=== PATIENT | female | born 1990 | race Caucasian/White ===

== ENCOUNTER 2018-04-29 16:59 | Emergency (ER) | payer SELFPAY ==
[2018-04-29 17:05] VITALS: BMI 18.3
--- NOTE | 2018-04-29 17:52 | PDOC ---
Attending Attestation - Resident Resident Name: Aldridge,Elaina - ED Attending Attestation I have performed the following: I have examined & evaluated the patient, The case was reviewed & discussed with the resident, I agree w/resident's findings & plan, Exceptions are as noted - HPI HPI: 04/29/18 17:51 28 yo F currently 7 weeks here with abd cramping, no vaginal bleeding. no urinary symptoms. also c/o nausea, headache, LMP 03/2304/29/18 18:58 - Physicial Exam PE: 04/29/18 18:59 awake alert NAD lungs clear bilaterally. heart rrr no mrg. abd soft suprapubic mild ttp. no cva tendernss. alert oriented x 3. - Medical Decision Making 04/29/18 17:52 differential IUP cramps of early , ectopic, ovarian cyst, uti. plan abd us, labs ua. ressess. 04/29/18 19:01 focused ED transvaginal us, indication abd pain, evaluate IUP transabdominal and transvaginal ultrsaound performed. uterus scanned in two planes. gestational sac, yolk sac and pole. crown rump length consistent with 6 weeks 2 days. FHR measured 124 bpm. no free fluid noted. large right ovarian, adnexal cyst, measuring 3.95 x 6.5 cm. simple in appearance. right and left sided venous and arterial flow noted. impression: live IUP 6 weeks 2 days, large right ovarian cyst 3.95 x 6.5cm. 04/29/18 21:47 pt with rads us consistent with our findings. live iup. large right adnexal cyst. d/w dr. adams who will see her in the office next week. given number and warning signs for torsion. 04/29/18 21:49 pt with positive uti. given rx for keflex 500 bid x 7 days .
--- NOTE | 2018-04-29 18:33 | PDOC ---
History of Present Illness - General Chief Complaint: Pain Stated Complaint: PAIN Time Seen by Provider: 04/29/18 17:19 History Source: Patient Exam Limitations: No Limitations - History of Present Illness Initial Comments: This is a 28 YO (~6 weeks by LMP 03/18/18) and distant cholecystectomy who p/w sharp 5/10 abdominal pain associated with mild nausea, mild headache, and mild lightheadedness for the past week. She denies radiation of the pain, f/c, d/c, n/t/w, dysuria, vaginal bleeding or discharge, loss of consciousness, or any other symptoms. She did not have the symptoms in her prior pregnancies. She found out she was by urine test at her PCP's office, and she has not had an US yet or established with an OB doctor. Past History - Past Medical History Allergies/Adverse Reactions: Allergies Allergy/AdvReac Type Severity Reaction Status Date / Time No Known Allergies Allergy Verified 04/29/18 17:06 Home Medications: Ambulatory Orders Cephalexin [Keflex] 500 mg PO BID #13 capsule 04/29/18 Asthma: No Cancer: No Cardiac Disorders: No COPD: No Diabetes: No HTN: No Seizures: No Thyroid Disease: No - Reproductive History Is Patient Now?: Yes - Suicide/Smoking/Psychosocial Hx Smoking Status: No Smoking History: Never smoked Have you smoked in the past 12 months: No Number of Cigarettes Smoked Daily: 0 Hx Alcohol Use: No Drug/Substance Use Hx: No Substance Use Type: None Hx Substance Use Treatment: No Review of Systems - Review of Systems Able to Perform ROS?: Yes Constitutional: No: Chills, Fever, Unexplained wgt Loss HEENTM: No: Nose Congestion, Throat Pain Respiratory: No: Cough, Shortness of Breath Cardiac (ROS): Yes: Lightheadedness (mild). No: Chest Pain, Palpitations ABD/GI: Yes: Nausea (mild), Other (abdominal pain). No: Constipated, Diarrhea, Vomiting : No: Burning, Dysuria Musculoskeletal: No: Back Pain, Neck Pain Integumentary: No: Bruising, Rash Neurological: Yes: Headache (mild). No: Numbness, Tingling, Weakness, Dizziness Endocrine: No: Unexplained Weight Gain, Unexplained Weight Loss *Physical Exam - Vital Signs Last Vital Signs Temp Pulse Resp BP Pulse Ox 99.2 F 74 18 110/70 99 04/29/18 17:03 04/29/18 17:03 04/29/18 17:03 04/29/18 17:03 04/29/18 17:03 - Physical Exam General Appearance: Yes: Nourished, Appropriately Dressed, Thin, Other ( nontoxic and well appearing adult female who appear comfortable, Divehi speaking, answers appropriately). No: Apparent Distress HEENT: positive: EOMI, ALDEN, Normal Voice, Hearing Grossly Normal. negative: Scleral Icterus (R), Scleral Icterus (L), Nasal Congestion Neck: positive: Trachea midline, Supple. negative: Tender, Rigid Respiratory/Chest: positive: Lungs Clear, Normal Breath Sounds. negative: Respiratory Distress, Crackles, Rhonchi, Stridor, Wheezing Cardiovascular: positive: Regular Rhythm, Regular Rate, S1, S2. negative: Edema , JVD, Murmur Gastrointestinal/Abdominal: positive: Normal Bowel Sounds, Tender (mild periumbilical and diffuse lower abdominal tenderness), Soft. negative: Organomegaly, Pulsatile Mass, Distended, Guarding, Rebound, Hernia, Mass Musculoskeletal: positive: Normal Inspection. negative: Decreased Range of Motion, Vertebral Tenderness Extremity: positive: Normal Capillary Refill, Normal Inspection, Normal Range of Motion. negative: Tender, Cyanosis Integumentary: positive: Normal Color, Dry, Warm. negative: Erythema, Rash, Bruising Neurologic: positive: general magistrate II-XII NML intact, Fully Oriented, Alert, Normal Mood/ Affect, Normal Response, Motor Strength 5/5 Procedures - Bedside Ultrasound Remarks: Study: Transabdominal and transvaginal US early OB, uterus, ovaries, bladder Indication: Abdominal pain in Findings: Intrauterine gestational sac with yolk sac and pole and FHR 127 , right ovarian cyst with max D=6.5cm. Conclusions: viable IUP with FHR 127, right ovarian cyst with max diameter 6.5 cm. ED Treatment Course - LABORATORY CBC & Chemistry Diagram: 04/29/18 18:29 04/29/18 18:29 - RADIOLOGY Radiology Studies Ordered: Category Date Time Status TRANSVAGINAL US PREG [US] Stat Ultrasound 04/29/18 18:26 Ordered Medical Decision Making - Medical Decision Making First trimester female p/w vaginal bleeding and lower abdominal pain at <20 wks gestation. Initial Vital Signs Temp Pulse Resp BP Pulse Ox 99.2 F 74 18 110/70 99 04/29/18 17:03 04/29/18 17:03 04/29/18 17:03 04/29/18 17:03 04/29/18 17:03 Exam: As noted in Physical Exam section. DDX IBNLT: threatened/inevitable/incomplete/complete/septic , ectopic, PID, TOA/cervicitis, endometritis, ruptured ovarian cyst, ovarian torsion, malignancy, menorrhagia, endometriosis, rectal bleed, hematuria, constipation, fibroids, etc. W/U ordered: CBCD CMP Mg Phos T&S UA UCx hCG Quant TVUS. TX ordered: None Bedside US: IUP with FHR 127, right ovarian cyst ~6.5 cm max diameter. Laboratory Tests 04/29/18 04/29/18 04/29/18 18:29 18:29 18:29 WBC 6.6 RBC 4.25 Hgb 13.0 Hct 37.5 D MCV 88.3 MCH 30.5 MCHC 34.6 RDW 12.8 Plt Count 277 D MPV 8.9 D Sodium 140 Potassium 3.6 Chloride 105 Carbon Dioxide 24 Anion Gap 11 BUN 6 L Creatinine 0.4 L Creat Clearance w eGFR > 60 Random Glucose 76 Calcium 8.6 Total Bilirubin 0.6 AST 14 L ALT 18 Alkaline Phosphatase 56 Total Protein 7.5 Albumin 3.9 Beta HCG, Quant 58567.1 Urine Color Urine Appearance Urine pH Ur Specific [place] Urine Protein Urine Glucose (UA) Urine Ketones Urine Blood Urine Nitrite Urine Bilirubin Urine Urobilinogen Ur Leukocyte Esterase Urine WBC (Auto) Urine RBC (Auto) Ur Epithelial Cells Urine Bacteria Hyaline Casts Urine Mucus Blood Type O POSITIVE Antibody Screen Negative 04/29/18 20:00 WBC RBC Hgb Hct MCV MCH MCHC RDW Plt Count MPV Sodium Potassium Chloride Carbon Dioxide Anion Gap BUN Creatinine Creat Clearance w eGFR Random Glucose Calcium Total Bilirubin AST ALT Alkaline Phosphatase Total Protein Albumin Beta HCG, Quant Urine Color Shabnam Urine Appearance Turbid Urine pH 5.0 Ur Specific [place] 1.019 Urine Protein 1+ H Urine Glucose (UA) Negative Urine Ketones 2+ H Urine Blood Negative Urine Nitrite Negative Urine Bilirubin Negative Urine Urobilinogen Negative Ur Leukocyte Esterase 2+ H Urine WBC (Auto) 208 Urine RBC (Auto) 9 Ur Epithelial Cells Many Urine Bacteria Rare Hyaline Casts 6 Urine Mucus Many Blood Type Antibody Screen 04/29/18 21:53 Reassessment: Patient notes mild headache; Tylenol ordered. Patient has UTI; dose Keflex ordered and E-Rx sent to patient's pharmacy. 04/29/18 22:[address] Segovia who is happy to see the patient in followup in 2 [facility] clinic. They will repeat sonogram to re-eval ovarian cyst as needed. She states as times these can simply be larger corpus luteum cysts that self resolve. Vital Signs Temperature 98.5 F 04/29/18 22:16 Pulse Rate 89 04/29/18 22:16 Respiratory Rate 19 04/29/18 22:16 Blood Pressure 110/67 04/29/18 22:16 O2 Sat by Pulse Oximetry (%) 99 04/29/18 22:16 Reassessment: Patient's pain has resolved; repeat abdominal exam nontender, VS wnl. DISCHARGE Workup is not concerning for emergency-level pathology at this time. The Pt is appropriate for discharge home w/ close outpatient f/u. The Pt is comfortable with this plan and will follow up with their PCP in 1-3 days. She will also follow up at 2 [facility]IDENT ASSISTANT clinic. She is instructed to picker / packer the Keflex from her pharmacy and take as directed on label. Specific return precautions are discussed and they will come back to the ER if necessary. *DC/Admit/Observation/Transfer Diagnosis at time of Disposition: Qualifiers: Weeks of gestation: less than 8 weeks Qualified Code(s): Z3A.01 - Less than 8 weeks gestation of UTI (urinary tract infection) Qualifiers: Urinary tract infection type: acute cystitis Hematuria presence: without hematuria Qualified Code(s): N30.00 - Acute cystitis without hematuria Headache Qualifiers: Headache type: unspecified Headache chronicity pattern: acute headache Intractability: not intractable Qualified Code(s): R51 - Headache - Discharge Dispostion Disposition: HOME Condition at time of disposition: Stable Decision to Admit order: No - Prescriptions Prescriptions: Cephalexin [Keflex] 500 mg PO BID #13 capsule - Referrals - Patient Instructions Printed Discharge Instructions: DI for Urinary Tract Infection (UTI), DI for Ovarian Cyst Additional Instructions: You were seen in the ER for abdominal pain in . We did an exam, laboratory work on your blood and urine, and an ultrasound. After our assessment , we do not think you are having a medical emergency at this time, and you are safe to go home. Please take Tylenol for any mild-moderate pain. Follow up with your club lounge attendant/noise abatement engineer and regular PCP doctor in the next 1-3 days. Call their clinic [facility], tell them you were seen in the ER, and tell them you need an appointment. Please come back to the ER at any time (24 hours a day) for any new or worsening symptoms, like worsening pelvic pain, discharge, high fever, headache, seizure, fainting, anemia, large amount of blood loss, or other symptoms. If you are having severe or life threatening symptoms, or symptoms that make it unsafe to drive or have someone drive you, please call 911. Por favor llame al [address] en la manana en el es para hacer shannon mary con un obstetrico. No recomendamos Dr. Segovia. [place] todos los antibioticos en la receta esta semana (shannon pastilla cada 12 horas) porque tiene shannon infeccion de la orina. Print Language: PERSIAN - Post Discharge Activity
[2018-04-29 18:35] LABS: HEMATOCRIT 37.5 % (32.4-45.2); MCH 30.5 pg (25.7-33.7); MCHC 34.6 g/dl (32.0-36.0); MEAN CELL VOLUME 88.3 fl (80-96); MEAN PLT VOLUME 8.9 fl (7.5-11.1); PLATELET COUNT 277 K/MM3 (134-434); RBC 4.25 M/mm3 (3.60-5.2); RDW 12.8 % (11.6-15.6); WHITE BLOOD COUNT 6.6 K/mm3 (4.0-10.0)
[2018-04-29 18:57] LABS: ALBUMIN 3.9 g/dl (3.4-5.0); ANION GAP 11 MMOL/L (8-16); BILIRUBIN,TOTAL 0.6 mg/dL (0.2-1.0); BLOOD UREA NITROGEN 6 mg/dL (7-18); CALCIUM 8.6 mg/dL (8.5-10.1); CHLORIDE 105 mmol/L (98-107); CO2 24 mmol/L (21-32); CREATININE 0.4 mg/dL (0.55-1.02); GLUCOSE,RANDOM 76 mg/dL (74-106); POTASSIUM 3.6 mmol/L (3.5-5.1); SGOT/AST 14 U/L (15-37); SGPT/ALT 18 U/L (12-78); SODIUM 140 mmol/L (136-145); TOT PROT 7.5 g/dl (6.4-8.2)
[2018-04-29 19:15] LABS: ALK PHOS 56 U/L (45-117)
[2018-04-29 20:16] LABS: URINE APPEARANCE TURBID; URINE BILIRUBIN NEGATIVE (<2.0 mg/dL); URINE COLOR AMBER; URINE GLUCOSE (UA) NEGATIVE (NEGATIVE); URINE KETONE 2+ (NEGATIVE); URINE NITRITE NEGATIVE (NEGATIVE); URINE UROBILINOGEN NEGATIVE mg/dL (0.2-1.0)
[2018-04-29 20:21] LABS: URINE LEUK ESTERASE 2+ (NEGATIVE); URINE PROTEIN 1+ (NEGATIVE)
[2018-04-29 20:22] LABS: EPI CELLS MANY /HPF (FEW); URINE BACTERIA RARE /hpf (NONE SEEN); URINE HYALINE CAST 6 /lpf; URINE MUCUS MANY
[2018-04-29] MEDS ORDERED: ACETAMINOPHEN 325 MG TABLET (FP) PO ONE (21:48)
[2018-04-29] MEDS ORDERED: CEPHALEXIN MONOHYDRATE 500 MG CAPSULE (UD) PO ONE (21:49)
[2018-04-29] MEDS ORDERED: ACETAMINOPHEN 325 MG TABLET (FP) ONE (22:05)
[2018-04-29] MEDS ORDERED: CEPHALEXIN MONOHYDRATE 500 MG CAPSULE (UD) ONE (22:06)
[2018-04-29 22:16] VITALS: BP 110/67; PULSE 89; TEMP 98.5
[2018-04-30 11:09] LABS: MAGNESIUM 1.9 mg/dL (1.8-2.4); PHOSPHOROUS 3.9 mg/dL (2.5-4.9)
== END 2018-04-29 22:16 | disposition home or self-care (01) ==
LOC: JER 16:59
DX: O26.891 Other specified pregnancy related conditions, first trimester (principal); Z3A.01 Less than 8 weeks gestation of pregnancy; N30.00 Acute cystitis without hematuria; R51 Headache
CPT/HCPCS: 36415; 76817-TC; 80053; 81003; 81015; 83735; 84100; 84702; 85027; 86850; 86900; 86901; 87086; 99283-25

== ENCOUNTER 2018-12-04 11:31 | Emergency (ER) | payer OTHER ==
--- NOTE | 2018-12-04 11:42 | PDOC ---
History of Present Illness - General Stated Complaint: ABDOMINAL PAIN Time Seen by Provider: 12/04/18 11:37 History Source: Patient Exam Limitations: No Limitations - History of Present Illness Initial Comments: 12/04/18 11:37 28 year old female , 37 weeks , presents with abdominal pain, since last night . Also reports passing whitish fluid this am at 8. Reports nausea, lightheadedness and intermittent lower abdomen. Timing/Duration: reports: intermittent Quality: reports: severe Abdominal Pain Onset Location: reports: suprapubic Pain Radiation: reports: RUQ, LUQ, RLQ, LLQ Activities at Onset: reports: no specific activity Treatment Prior to Arrive: improves with: other (no intervention) Aggravating Factors: improves with: None Alleviating Factors: improves with: None Past History - Travel Traveled outside of the country in the last 30 days: No Close contact w/someone who was outside of country & ill: No - Past Medical History Allergies/Adverse Reactions: Allergies Allergy/AdvReac Type Severity Reaction Status Date / Time No Known Allergies Allergy Verified 04/29/18 17:06 Home Medications: Ambulatory Orders Cephalexin [Keflex] 500 mg PO BID #13 capsule 04/29/18 Asthma: No Cancer: No Cardiac Disorders: No COPD: No Diabetes: No HTN: No Seizures: No Thyroid Disease: No - Suicide/Smoking/Psychosocial Hx Smoking Status: No Smoking History: Never smoked Have you smoked in the past 12 months: No Number of Cigarettes Smoked Daily: 0 Hx Alcohol Use: No Drug/Substance Use Hx: No Substance Use Type: None Hx Substance Use Treatment: No Abd/GI Specific PMHX - Complaint Specific PMHX Pancreatitis: No Review of Systems - Review of Systems Able to Perform ROS?: Yes Is the patient limited Welsh proficient: Yes Constitutional: No: Chills, Fever HEENTM: No: Ear Pain, Throat Pain, Mouth Pain Respiratory: No: Orthopnea, Wheezing Cardiac (ROS): No: Palpitations ABD/GI: Yes: Abdominal cramping. No: Blood Streaked Bowels, Rectal Bleeding, Vomiting : No: Incontinence, Pain, Urgency Musculoskeletal: No: Joint Pain, Muscle Weakness, Neck Pain Integumentary: No: Erythema Neurological: No: Headache, Numbness, Paresthesia, Weakness *Physical Exam - Physical Exam General Appearance: Yes: Nourished, Appropriately Dressed HEENT: positive: TMs Normal, Pharynx Normal Neck: positive: Supple. negative: Lymphadenopathy (L) Respiratory/Chest: positive: Lungs Clear Cardiovascular: positive: Regular Rhythm, Regular Rate Female Pelvic Exam: positive: other (whitish fluid per vagina ) Extremity: positive: Normal Capillary Refill Neurologic: positive: cold patcher II-XII NML intact, Fully Oriented Medical Decision Making - Medical Decision Making 12/04/18 11:41 28 year old female , 37 weeks with abdominal cramping since last night and passing whitish fluid this am Plan transfer to labor and deliver *DC/Admit/Observation/Transfer Diagnosis at time of Disposition: in labor - Discharge Dispostion Disposition: TRANSFER ACUTE CARE/OTHER HOSP Condition at time of disposition: Good - Referrals - Patient Instructions - Post Discharge Activity
[2018-12-04 13:57] VITALS: BMI 21.3
[2018-12-04 14:03] VITALS: BP 100/57; PULSE 72; TEMP 98.3
[2018-12-04] MEDS ORDERED: LACTATED RINGERS SOLUTION 1,000 ML IV SCH (14:30)
[2018-12-04 14:42] LABS: BASO % 0.2 % (0-2.0); EOS % 0.2 % (0-4.5); HEMATOCRIT 38.7 % (32.4-45.2); HEMOGLOBIN 13.2 GM/dL (10.7-15.3); LYMPH % 17.6 % (8-40); MCH 32.3 pg (25.7-33.7); MCHC 34.1 g/dl (32.0-36.0); MEAN CELL VOLUME 94.9 fl (80-96); PLATELET COUNT 203 K/MM3 (134-434); RBC 4.08 M/mm3 (3.60-5.2); RDW 13.4 % (11.6-15.6); WHITE BLOOD COUNT 8.9 K/mm3 (4.0-10.0)
[2018-12-04 14:53] LABS: INR 0.86 (0.83-1.09); PROTHROMBIN TIME (PATIENT) 10.1 SEC (9.7-13.0)
[2018-12-04 14:56] LABS: ACTIVATED PTT 30.2 SECONDS (25.2-36.5)
[2018-12-04 15:05] LABS: ANION GAP 9 MMOL/L (8-16); BLOOD UREA NITROGEN 6 mg/dL (7-18); CHLORIDE 106 mmol/L (98-107); CO2 23 mmol/L (21-32); CREATININE 0.3 mg/dL (0.55-1.3); GLUCOSE,RANDOM 65 mg/dL (74-106); SODIUM 137 mmol/L (136-145)
== END 2018-12-04 16:30 | disposition home or self-care (01) ==
LOC: JER 11:31 → JLDR 12:41 → UNDOADMIN 12:41 → JER 16:30
DX: O26.893 Other specified pregnancy related conditions, third trimester (principal); O47.1 False labor at or after 37 completed weeks of gestation; Z3A.37 37 weeks gestation of pregnancy
CPT/HCPCS: 36415; 80048; 85025; 85610; 85730; 86593; 86850; 86900; 86901; 99281-25

== ENCOUNTER 2018-12-14 09:00 | Inpatient (IN) | payer OTHER ==
[2018-12-14 09:45] LABS: BASO % 0.5 % (0-2.0); EOS % 0.5 % (0-4.5); HEMATOCRIT 36.4 % (32.4-45.2); HEMOGLOBIN 12.7 GM/dL (10.7-15.3); LYMPH % 17.6 % (8-40); MCH 33.1 pg (25.7-33.7); MCHC 34.9 g/dl (32.0-36.0); MEAN CELL VOLUME 94.6 fl (80-96); MEAN PLT VOLUME 9.8 fl (7.5-11.1); MONO % 4.9 % (3.8-10.2); NEUT % 76.5 % (42.8-82.8); PLATELET COUNT 186 K/MM3 (134-434); RBC 3.85 M/mm3 (3.60-5.2); RDW 13.2 % (11.6-15.6); WHITE BLOOD COUNT 7.4 K/mm3 (4.0-10.0)
[2018-12-14 10:04] LABS: INR 0.85 (0.83-1.09)
[2018-12-14 10:07] LABS: ACTIVATED PTT 30.2 SECONDS (25.2-36.5)
[2018-12-14 10:10] VITALS: BMI 22.4
[2018-12-14 10:10] LABS: ANION GAP 8 MMOL/L (8-16); BLOOD UREA NITROGEN 9 mg/dL (7-18); CALCIUM 8.7 mg/dL (8.5-10.1); CHLORIDE 108 mmol/L (98-107); CO2 23 mmol/L (21-32); CREATININE 0.5 mg/dL (0.55-1.3); GLUCOSE,RANDOM 145 mg/dL (74-106); POTASSIUM 3.7 mmol/L (3.5-5.1); SODIUM 139 mmol/L (136-145)
[2018-12-14] MEDS ORDERED: DEXTROSE 5%-LACTATED RINGERS 1,000 ML IV SCH (10:30)
--- NOTE | 2018-12-14 11:31 | HP ---
Admitting History and Physical - Admission Chief Complaint: admit for labor, srom History of Present Illness: 28 y/o at 39 plus weeks comes for labor pains and eventual srom, no other issues. She is a pt of [facility]. 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: Alzheimer's, CVA, Dementia, Migraine, Multiple Sclerosis, Peripheral Neuropathy, Parkinson's, Seizure, Syncope, TIA, Vertigo, Other Cardiovascular: No: AFIB, Aneurysm, Aortic Insufficiency, Aortic Stenosis, CAD, CHF, Deep Vein Thrombosis, HTN, Hyperlipdemia, DC, Mitral Insufficiency, Mitral Stenosis, Murmur, Pulmonary Hypertension, Other Pulmonary: No: Asthma, Bronchitis, Cancer, COPD, O2 Dependent, Pneumonia, Previously Intubated, Pulmonary Embolus, Pulmonary Fibrosis, Sleep Apnea, Other Gastrointestinal: No: Ascites, Cancer, Constipation, Crohn's Disease, Diverticulitis, Diverticulosis, Esophageal Varices, Gastritis, GERD, GI Bleed, Hemorrhoids, Hiatal Hernia, Inflamatory Bowel Disease, Irritable Bowel Disease, Pancreatitis, Peptic Ulcer Disease, Ulcerative Colitis, Other Hepatobiliary: No: Cirrhosis, Cholelithiasis, Cholecystitis, Choledocholithiasis , Hepatitis A, Hepatitis B, Hepatitis C, Other Renal/: No: Renal Failure, Renal Inusuff, BPH, Cancer, Hematuria, Hemodialysis , Neurogenic Bladder, Renal Calculi, UTI, Other Reproductive: No: Ectopic , Endometriosis, Fibroids, PID, Polycystic Ovary Syndrome, Postmenopausal, Other ...: 3 ...Para: 2 Heme/Onc: No: Anemia, B12 Deficiency, Bleeding Disorder, Cancer, Current Chemotherapy, Current Radiation Therapy, Hemochromatosis, Hypercoaguable State, Myeloproliferative Synd, Sickle Cell Disease, Sickle Cell Trait, Thrombocytopenia, Other Infectious Disease: No: AIDS, C-Diff, Herpes Zoster, HIV, MRSA, STD's, Tuberculosis, VREF, Other Psych: No: Addictions, Anxiety, Bipolar, Depression, Panic, Psychosis, Schizophrenia, Other Musculoskeletal: No: Bursitis, Chronic low back pain, Hemiparesis, Hemiplegia, Osteoarthritis, Paraplegia, Other Rheumatology: No: Fibromyalgia, Gout, Lupus, Rheumatoid Arthritis, Sarcoidosis, Vasculitis, Other Endocrine: No: Yuba's Disease, Javy's Disease, Diabetes Insipidus, Diabetes Mellitus, Hyperparathyroidism, Hyperthyroidism, Hypothyroidism, Osteopenia, SIADH, Other Dermatology: No: Basal Cell, Cellulitis, Eczema, Melanoma, Psoriasis, Squamous Cell, Other - Past Surgical History Past Surgical History: No: None, AAA Repair, AICD, Amputation, Appendectomy, Arthrosocopy, AV Fistula/Graft, Bariatric Surgery, Breast Biopsy, Bypass, CABG, Carotid Endarterectomy, Cataract Removal, Cholecystectomy, Colectomy, Colonoscopy, Colostomy, Craniotomy, , Cystectomy, Hernia Repair, Hysterectomy, Ileal Conduit, Ileosotomy, Joint Replacement, Kidney Transplant, Laminectomy, Liver Transplant, Mastectomy, Nephrectomy, Oopherectomy, Orchiectomy, Permanent Pacemaker, Prostatectomy, Splenectomy, Stent, Thoracotomy , TURP, Tonsillectomy, Tubal Ligation, Upper Endoscopy, Valve Replacement, Vasectomy, Vein Stripping/Ligation - Smoking History Smoking history: Never smoked Have you smoked in the past 12 months: No Aproximately how many cigarettes per day: 0 - Alcohol/Substance Use Hx Alcohol Use: No History of Substance Use: denies: None, Cocaine, Heroin, Marijuana, Prescription , Tranquilizers - Social History Usual Living Arrangement: No: Alone, With Spouse, With Parent, With Significant Other, With Child, Assisted Living, Long-Term, Other Home Medications - Allergies Allergies/Adverse Reactions: Allergies Allergy/AdvReac Type Severity Reaction Status Date / Time No Known Allergies Allergy Verified 12/04/18 11:39 Review of Systems - Review of Systems Constitutional: reports: No Symptoms Eyes: reports: No Symptoms HENT: reports: No Symptoms Neck: reports: No Symptoms Cardiovascular: reports: No Symptoms Respiratory: reports: No Symptoms Gastrointestinal: reports: No Symptoms Genitourinary: reports: No Symptoms Musculoskeletal: reports: No Symptoms Integumentary: reports: No Symptoms Neurological: reports: No Symptoms Endocrine: reports: No Symptoms Physical Examination Vital Signs: Vital Signs Temperature 98.2 F 12/14/18 10:00 Pulse Rate 72 12/14/18 10:00 Respiratory Rate 20 12/14/18 10:00 Blood Pressure 115/81 12/14/18 10:00 O2 Sat by Pulse Oximetry (%) Constitutional: Yes: Well Nourished Eyes: Yes: WNL HENT: Yes: WNL Neck: Yes: WNL Cardiovascular: Yes: WNL Respiratory: Yes: WNL Gastrointestinal: Yes: WNL, Other ...Rectal Exam: Yes: WNL Renal/: Yes: WNL Breast(s): Yes: WNL Musculoskeletal: Yes: WNL Extremities: Yes: WNL Integumentary: Yes: WNL Wound/Incision: No: Clean/Dry Neurological: Yes: WNL ...Motor Strength: WNL Psychiatric: Yes: WNL Labs: CBC, BMP 12/14/18 09:25 12/14/18 09:25 Assessment/Plan as above admit labs exam 4cm
[2018-12-14] MEDS ORDERED: ELECTROLYTE-148 SOLN 1,000 ML IV SCH (11:45)
[2018-12-14] MEDS ORDERED: OXYTOCIN 20 UNITS in 0.9% NS 20 UNIT/1,000 ML INFUS.BAG IV ONE (14:49)
[2018-12-14] MEDS ORDERED: OXYTOCIN 20 UNITS in 0.9% NS 20 UNIT/1,000 ML INFUS.BAG IV SCH (15:00)
[2018-12-14] MEDS ORDERED: METHYLERGONOVINE MALEATE 0.2 MG/1 ML AMP IM ONE (15:00)
[2018-12-14] MEDS ORDERED: WITCH HAZEL 50% (TUCKS) 40 PAD/JAR PAD TP PRN (17:33)
[2018-12-14] MEDS ORDERED: BENZOCAINE 28 GM HEMORRHOIDAL OINTMENT TP PRN (17:33)
[2018-12-14] MEDS ORDERED: BISACODYL 10 MG SUPP.RECT RC PRN (17:33)
[2018-12-14] MEDS ORDERED: BENZOCAINE 20% 57 GM BOTTLE TP PRN (17:33)
[2018-12-14] MEDS ORDERED: METHYLERGONOVINE MALEATE 0.2 MG/1 ML AMP IM PRN (17:33)
[2018-12-14] MEDS ORDERED: D5W-LR W/ 20 UNITS OXYTOCIN 1,000 ML IV SCH (17:45)
[2018-12-14] MEDS: IBUPROFEN 600 MG TABLET (FP) PO PRN (18:33)
[2018-12-14] MEDS: ACETAMINOPHEN 325 MG TABLET (FP) PO PRN (18:34)
[2018-12-14] MEDS: FERROUS SO4 325 MG TABLET (FP) PO SCH (18:34)
[2018-12-15] MEDS: ACETAMINOPHEN 325 MG TABLET (FP) PO PRN (02:23)
[2018-12-15] MEDS: IBUPROFEN 600 MG TABLET (FP) PO PRN (02:23)
--- NOTE | 2018-12-15 06:39 | PN ---
Progress Note (short form) - Note Progress Note: ppd 1 doing well, no c/o . no excess vaginal bleeding CBC, BMP 12/14/18 09:25 12/14/18 09:25 Last Vital Signs Temp Pulse Resp BP Pulse Ox 98.6 F 60 18 102/76 12/15/18 06:00 12/15/18 06:00 12/15/18 06:00 12/15/18 06:00 abdomen soft, no cva , uterus firm, non tender lochai mild no calf tenderness plan ambulate, cbc plan for d/c home in am
[2018-12-15 08:32] LABS: BASO % 0.4 % (0-2.0); EOS % 0.3 % (0-4.5); HEMATOCRIT 37.6 % (32.4-45.2); HEMOGLOBIN 12.9 GM/dL (10.7-15.3); LYMPH % 18.1 % (8-40); MCH 32.2 pg (25.7-33.7); MCHC 34.2 g/dl (32.0-36.0); MEAN PLT VOLUME 10.2 fl (7.5-11.1); MONO % 6.2 % (3.8-10.2); PLATELET COUNT 185 K/MM3 (134-434); RDW 13.3 % (11.6-15.6); WHITE BLOOD COUNT 10.2 K/mm3 (4.0-10.0)
[2018-12-15] MEDS: PRENATAL VITAMINS W/ FOLIC ACID TABLET (FP) PO SCH (09:24)
[2018-12-15] MEDS: FERROUS SO4 325 MG TABLET (FP) PO SCH ×2 (09:24→18:41)
[2018-12-15] MEDS ORDERED: SENNOSIDES/DOCUSATE COMBO (SENNA PLUS) TABLET (UD) PO PRN (22:00)
[2018-12-16 07:58] VITALS: BP 100/64; PULSE 63; TEMP 98.6
[2018-12-16] MEDS: FERROUS SO4 325 MG TABLET (FP) PO SCH (08:05)
[2018-12-16] MEDS: IBUPROFEN 600 MG TABLET (FP) PO PRN (08:05)
[2018-12-16] MEDS: ACETAMINOPHEN 325 MG TABLET (FP) PO PRN (08:07)
[2018-12-16] MEDS: PRENATAL VITAMINS W/ FOLIC ACID TABLET (FP) PO SCH (09:24)
--- NOTE | 2018-12-16 10:12 | DS ---
Physical Exam-RDA Vital Signs: Vital Signs Temperature 98.6 F 12/16/18 07:55 Pulse Rate 63 12/16/18 07:55 Respiratory Rate 20 12/16/18 07:55 Blood Pressure 100/64 12/16/18 07:55 O2 Sat by Pulse Oximetry (%) Constitutional: Yes: Well Nourished Eyes: Yes: Conjunctiva Clear HENT: Yes: Atraumatic Respiratory: Yes: Regular Gastrointestinal: Yes: Normal Bowel Sounds ...Rectal Exam: Yes: WNL Renal/: Yes: WNL Pelvis: Yes: WNL External Genitalia: Yes: Normal Vaginal Exam: Yes: Normal Cervix: Yes: Normal Uterus: Yes: Firm ....Post : Yes: Uterus firm, Moderate lochia serosa Breast(s): Yes: WNL Musculoskeletal: Yes: WNL Extremities: Yes: WNL Neurological: Yes: Alert, Oriented Psychiatric: Yes: Alert, Oriented Labs: CBC, BMP 12/15/18 07:50 12/14/18 09:25 Delivery - Delivery Episiotomy/Laceration: None EBL (cc): 300 Delivery, Single - Stages of Labor Date 1st Stage Initiatied: 12/14/18 Time 1st Stage Initiated: 06:30 Date 2nd Stage Initiated: 12/14/18 Time 2nd Stage Initiated: 14:30 Date of Delivery: 12/14/18 Time of Delivery: 14:47 Time Placenta Delivered: 14:50 - Condition of Infant 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 F/U in clinic in 6 weeks. Disposition: HOME
== END 2018-12-16 16:35 | disposition home or self-care (01) | DRG 560 ==
LOC: JLDR 09:00 → J3W 16:32
PROVIDERS: ADMIT Obstetrics & Gynecology; ATTEND Obstetrics & Gynecology
PROC: 10E0XZZ Delivery of Products of Conception, External Approach (ICD-10-PCS; principal; 2018-12-14)
DX: O80 Encounter for full-term uncomplicated delivery (principal); Z3A.39 39 weeks gestation of pregnancy; Z37.0 Single live birth
CPT/HCPCS: 36415; 59409; 80048; 85025; 85610; 85730; 86593; 86850; 86900; 86901

== ENCOUNTER 2020-09-12 07:50 | Inpatient (IN) | payer OTHER ==
[2020-09-12] MEDS ORDERED: BUTORPHANOL TARTRATE 1 MG/ML VIAL IVPUSH PRN (08:12)
[2020-09-12] MEDS ORDERED: PROMETHAZINE HCL 25 MG/1 ML VIAL IVPB ONE (08:12)
[2020-09-12] MEDS ORDERED: DEXTROSE 5%-LACTATED RINGERS 1,000 ML IV SCH (08:15)
[2020-09-12 09:20] VITALS: BMI 23.4
[2020-09-12 09:33] LABS: BASO % 0.4 % (0-2.0); EOS % 0.3 % (0-4.5); HEMATOCRIT 36.2 % (32.4-45.2); HEMOGLOBIN 12.5 GM/dL (10.7-15.3); LYMPH % 24.1 % (8-40); MCH 32.3 pg (25.7-33.7); MCHC 34.6 g/dl (32.0-36.0); MEAN CELL VOLUME 93.5 fl (80-96); MEAN PLT VOLUME 10.3 fl (7.5-11.1); MONO % 5.7 % (3.8-10.2); NEUT % 69.5 % (42.8-82.8); PLATELET COUNT 196 K/MM3 (134-434); RBC 3.87 M/mm3 (3.60-5.2); RDW 12.9 % (11.6-15.6)
[2020-09-12 09:41] LABS: INR 0.86 (0.83-1.09); PROTHROMBIN TIME (PATIENT) 10.5 SEC (9.7-13.0)
[2020-09-12 09:43] LABS: ACTIVATED PTT 29.2 SECONDS (25.2-36.5)
[2020-09-12 09:50] LABS: CALCIUM 8.2 mg/dL (8.5-10.1); POTASSIUM 3.8 mmol/L (3.5-5.1)
[2020-09-12 09:51] LABS: BLOOD UREA NITROGEN 9.8 mg/dL (7-18)
[2020-09-12 09:54] LABS: CREATININE 0.5 mg/dL (0.55-1.3)
[2020-09-12] MEDS ORDERED: OXYTOCIN 30 UNITS in 0.9% NS 30 UNIT/500 ML INFUS.BAG IVPB SCH (11:15)
[2020-09-12] MEDS ORDERED: OXYTOCIN 30 UNITS in 0.9% NS 30 UNIT/500 ML INFUS.BAG IVPB ONE (11:20)
[2020-09-12] MEDS ORDERED: OXYTOCIN 20 UNITS in 0.9% NS 20 UNIT/1,000 ML INFUS.BAG IV ONE (11:34)
[2020-09-12] MEDS ORDERED: BENZOCAINE 28 GM HEMORRHOIDAL OINTMENT TP PRN (13:12)
[2020-09-12] MEDS ORDERED: BISACODYL 10 MG SUPP.RECT RC PRN (13:12)
[2020-09-12] MEDS ORDERED: WITCH HAZEL 50% (TUCKS) 40 PAD/JAR PAD TP PRN (13:12)
[2020-09-12] MEDS ORDERED: BENZOCAINE 20% 57 GM BOTTLE TP PRN (13:12)
[2020-09-12] MEDS ORDERED: METHYLERGONOVINE MALEATE 0.2 MG/1 ML AMP IM PRN (13:12)
[2020-09-12] MEDS ORDERED: OXYTOCIN 20 UNITS in 0.9% NS 20 UNIT/1,000 ML INFUS.BAG IV SCH (13:15)
[2020-09-12] MEDS ORDERED: IBUPROFEN 600 MG TABLET (FP) PO ONE (13:37)
[2020-09-12] MEDS ORDERED: ACETAMINOPHEN 325 MG TABLET (FP) ONE (13:37)
[2020-09-12] MEDS: ACETAMINOPHEN 325 MG TABLET (FP) PO PRN ×2 (13:39→20:41)
[2020-09-12] MEDS: IBUPROFEN 600 MG TABLET (FP) PO PRN ×2 (13:40→20:41)
[2020-09-12] MEDS: FERROUS SO4 325 MG TABLET (FP) PO SCH (22:00)
[2020-09-13 07:23] LABS: BASO % 0.5 % (0-2.0); EOS % 0.8 % (0-4.5); HEMATOCRIT 37.5 % (32.4-45.2); HEMOGLOBIN 12.9 GM/dL (10.7-15.3); LYMPH % 23.3 % (8-40); MCHC 34.4 g/dl (32.0-36.0); MEAN CELL VOLUME 92.9 fl (80-96); MONO % 5.8 % (3.8-10.2); NEUT % 69.6 % (42.8-82.8); PLATELET COUNT 205 K/MM3 (134-434); RBC 4.04 M/mm3 (3.60-5.2); RDW 12.9 % (11.6-15.6); WHITE BLOOD COUNT 9.8 K/mm3 (4.0-10.0)
[2020-09-13] MEDS: PRENATAL VITAMINS W/ FOLIC ACID TABLET (FP) PO SCH (10:00)
[2020-09-13] MEDS: FERROUS SO4 325 MG TABLET (FP) PO SCH ×2 (10:00→21:54)
[2020-09-13] MEDS: ACETAMINOPHEN 325 MG TABLET (FP) PO PRN (21:54)
[2020-09-13] MEDS: IBUPROFEN 600 MG TABLET (FP) PO PRN (21:55)
[2020-09-13] MEDS ORDERED: SENNOSIDES/DOCUSATE COMBO (SENNA PLUS) TABLET (UD) PO PRN (22:00)
[2020-09-14] MEDS: PRENATAL VITAMINS W/ FOLIC ACID TABLET (FP) PO SCH (11:17)
[2020-09-14] MEDS: FERROUS SO4 325 MG TABLET (FP) PO SCH (11:17)
[2020-09-14 13:52] VITALS: BP 98/52; PULSE 69; TEMP 98
== END 2020-09-14 15:55 | disposition home or self-care (01) | DRG 560 ==
LOC: JLDR 07:50 → J3W 15:22
PROVIDERS: ADMIT Obstetrics & Gynecology; ATTEND Obstetrics & Gynecology
PROC: 10E0XZZ Delivery of Products of Conception, External Approach (ICD-10-PCS; principal; 2020-09-12)
DX: O80 Encounter for full-term uncomplicated delivery (principal); Z3A.39 39 weeks gestation of pregnancy; Z37.0 Single live birth
CPT/HCPCS: 36415; 59409; 80048; 85025; 85610; 85730; 86780; 86850; 86900; 86901; C9803; U0003

== ENCOUNTER 2021-06-22 10:51 | Emergency (ER) | payer OTHER ==
[2021-06-22 11:11] VITALS: TEMP 98.8; BMI 113.3
[2021-06-22] MEDS ORDERED: ONDANSETRON 4 MG TABLET PO ONE (11:50)
[2021-06-22] MEDS ORDERED: MAG HYDROX/AL HYDROX/SIMETH 30 ML UNIT-DOSE CUP PO ONE (11:50)
[2021-06-22] MEDS ORDERED: METOCLOPRAMIDE HCL 10 MG TABLET (FP) PO ONE (11:50)
[2021-06-22] MEDS ORDERED: FAMOTIDINE 20 MG TABLET PO ONE (11:55)
[2021-06-22] MEDS ORDERED: SODIUM CHLORIDE 0.9% 500 ML INFUS.BAG IV ONE (12:44)
[2021-06-22] MEDS ORDERED: ONDANSETRON 8 MG TABLET (FP) PO ONE (12:52)
[2021-06-22] MEDS ORDERED: FAMOTIDINE 20 MG TABLET ONE (12:52)
[2021-06-22] MEDS ORDERED: MAG HYDROX/AL HYDROX/SIMETH 30 ML UNIT-DOSE CUP ONE (12:53)
[2021-06-22 13:36] LABS: BASO % 0.2 % (0-2.0); EOS % 0.2 % (0-4.5); HEMATOCRIT 38.5 % (32.4-45.2); HEMOGLOBIN 13.3 GM/dL (10.7-15.3); LYMPH % 32.9 % (8-40); MCH 30.5 pg (25.7-33.7); MCHC 34.4 g/dl (32.0-36.0); MEAN CELL VOLUME 88.6 fl (80-96); MEAN PLT VOLUME 9.1 fl (7.5-11.1); MONO % 6.4 % (3.8-10.2); NEUT % 60.3 % (42.8-82.8); PLATELET COUNT 256 10^3/uL (134-434); RBC 4.35 M/mm3 (3.60-5.2); WHITE BLOOD COUNT 4.7 K/mm3 (4.0-10.0)
[2021-06-22 13:39] LABS: EPI CELLS 19 /uL (0-25.1); HYALINE CASTS 1 /uL (0-3.1); URINE APPEARANCE CLOUDY; URINE BACTERIA 75 /uL (0-1359); URINE BILIRUBIN NEGATIVE (NEGATIVE); URINE COLOR YELLOW; URINE GLUCOSE (UA) NEGATIVE (NEGATIVE); URINE KETONE 1+ (NEGATIVE); URINE LEUK ESTERASE TRACE (NEGATIVE); URINE NITRITE NEGATIVE (NEGATIVE); URINE PROTEIN NEGATIVE (NEGATIVE); URINE RBC 4 /uL (0-23.9); URINE UROBILINOGEN 0.2 mg/dL (0.2-1.0); URINE WBC 17 /uL (0-25.8)
[2021-06-22 14:04] LABS: CALCIUM 8.9 mg/dL (8.5-10.1)
[2021-06-22 14:05] LABS: BLOOD UREA NITROGEN 6.8 mg/dL (7-18)
[2021-06-22 14:08] LABS: CREATININE 0.5 mg/dL (0.55-1.3)
[2021-06-22 14:09] LABS: BILIRUBIN,TOTAL 0.6 mg/dL (0.2-1); TOT PROT 7.6 g/dl (6.4-8.2)
[2021-06-22] MEDS ORDERED: POTASSIUM CHLORIDE TABS 10 MEQ TABLET.ER (FP) PO ONE (17:13)
[2021-06-22] MEDS ORDERED: POTASSIUM CHLORIDE TABS 10 MEQ TABLET.ER (FP) ONE (17:45)
[2021-06-22 20:26] VITALS: BP 110/70; PULSE 84
== END 2021-06-22 20:26 | disposition home or self-care (01) ==
LOC: JER 10:51
DX: N83.201 Unspecified ovarian cyst, right side (principal)
CPT/HCPCS: 36415; 74177-TC; 76830-TC; 80053; 81003; 83690; 84703; 85025; 87086; 87491; 87591; 93005; 93010; 99285-25; Q9967

== ENCOUNTER 2021-07-15 11:04 | Emergency (ER) | payer OTHER ==
[2021-07-15 11:23] VITALS: TEMP 98.6; BMI 21.4
[2021-07-15] MEDS ORDERED: SODIUM CHLORIDE 1,000 ML IV STA (12:00)
[2021-07-15] MEDS ORDERED: METOCLOPRAMIDE HCL INJECTION 10 MG/2 ML VIAL IVPB ONE (12:00)
[2021-07-15] MEDS ORDERED: ACETAMINOPHEN 1000 MG/100 ML VIAL IVPB ONE (12:00)
[2021-07-15] MEDS ORDERED: METOCLOPRAMIDE HCL INJECTION 10 MG/2 ML VIAL ONE (12:11)
[2021-07-15] MEDS ORDERED: ACETAMINOPHEN INJECTION 100 ML IVPB ONE (12:12)
[2021-07-15 12:32] LABS: BASO % 0.3 % (0-2.0); EOS % 0.2 % (0-4.5); HEMATOCRIT 39.6 % (32.4-45.2); HEMOGLOBIN 13.5 GM/dL (10.7-15.3); LYMPH % 21.8 % (8-40); MCH 30.4 pg (25.7-33.7); MCHC 34.1 g/dl (32.0-36.0); MONO % 3.8 % (3.8-10.2); NEUT % 73.9 % (42.8-82.8); PLATELET COUNT 302 10^3/uL (134-434); RBC 4.45 M/mm3 (3.60-5.2); RDW 13.4 % (11.6-15.6); WHITE BLOOD COUNT 7.8 K/mm3 (4.0-10.0)
[2021-07-15 12:49] LABS: ALBUMIN 4.2 g/dl (3.4-5.0); BLOOD UREA NITROGEN 5.2 mg/dL (7-18); CALCIUM 9.2 mg/dL (8.5-10.1)
[2021-07-15 12:52] LABS: CREATININE 0.5 mg/dL (0.55-1.3)
[2021-07-15 12:54] LABS: TOT PROT 7.8 g/dl (6.4-8.2)
[2021-07-15] MEDS ORDERED: KETOROLAC TROMETHAMINE 30 MG/1 ML VIAL IVPUSH ONE (13:52)
[2021-07-15] MEDS ORDERED: KETOROLAC TROMETHAMINE 30 MG/1 ML VIAL ONE (14:01)
[2021-07-15 15:39] VITALS: BP 110/67; PULSE 76
== END 2021-07-15 15:39 | disposition home or self-care (01) ==
LOC: JER 11:04
PROC: 3E0333Z Introduction of Anti-inflammatory into Peripheral Vein, Percutaneous Approach (ICD-10-PCS; principal; 2021-07-15)
PROC: 3E033GC Introduction of Other Therapeutic Substance into Peripheral Vein, Percutaneous Approach (ICD-10-PCS; 2021-07-15)
PROC: 3E0333Z Introduction of Anti-inflammatory into Peripheral Vein, Percutaneous Approach (ICD-10-PCS; 2021-07-15)
PROC: 3E033GC Introduction of Other Therapeutic Substance into Peripheral Vein, Percutaneous Approach (ICD-10-PCS; 2021-07-15)
PROC: 3E0337Z Introduction of Electrolytic and Water Balance Substance into Peripheral Vein, Percutaneous Approach (ICD-10-PCS; 2021-07-15)
DX: R51.9 Headache, unspecified (principal)
CPT/HCPCS: 36415; 70450-TC; 80053; 84703; 85025; 99284-25; J0131

== ENCOUNTER 2024-06-23 10:49 | Emergency (ER) | payer OTHER ==
[2024-06-23 11:00] VITALS: BP 114/73; PULSE 77; RESP 18; TEMP 98.6; BMI 16.7
[2024-06-23] MEDS ORDERED: ONDANSETRON 4 MG/2 ML VIAL ONE (11:23)
[2024-06-23] MEDS ORDERED: ACETAMINOPHEN INJECTION 100 ML ONE (11:23)
[2024-06-23] MEDS: ACETAMINOPHEN 1000 MG/100 ML BAG IVPB ONE (11:47)
[2024-06-23] MEDS: ONDANSETRON 4 MG/2 ML VIAL IVPUSH ONE (11:47)
[2024-06-23 11:49] LABS: BASO % 0.6 % (0-2.0); EOS % 0.8 % (0-4.5); HEMATOCRIT 41.1 % (32.4-45.2); HEMOGLOBIN 13.8 GM/dL (10.7-15.3); LYMPH % 30.6 % (8-40); MCH 30.6 pg (25.7-33.7); MCHC 33.5 g/dl (32.0-36.0); MEAN CELL VOLUME 91.5 fl (80-96); MEAN PLT VOLUME 8.9 fl (7.5-11.1); MONO % 3.9 % (3.8-10.2); NEUT % 64.1 % (42.8-82.8); PLATELET COUNT 255 10^3/uL (134-434); RBC 4.49 M/mm3 (3.60-5.2); RDW 12.5 % (11.6-15.6); WHITE BLOOD COUNT 5.8 K/mm3 (4.0-10.0)
[2024-06-23 11:51] LABS: EPI CELLS >36 /uL (0-25.1); HYALINE CASTS 1 /uL (0-3.1); PH,URINE 6.5 (5.0-8.0); URINE APPEARANCE CLOUDY; URINE BACTERIA 917 /uL (0-1359); URINE BILIRUBIN NEGATIVE (NEGATIVE); URINE COLOR YELLOW; URINE GLUCOSE (UA) NEGATIVE (NEGATIVE); URINE KETONE NEGATIVE (NEGATIVE); URINE LEUK ESTERASE 1+ (NEGATIVE); URINE NITRITE NEGATIVE (NEGATIVE); URINE PROTEIN NEGATIVE (NEGATIVE); URINE RBC 18 /uL (0-23.9); URINE WBC 32 /uL (0-25.8)
[2024-06-23 12:17] LABS: POTASSIUM 3.4 mmol/L (3.5-5.1)
[2024-06-23 12:19] LABS: ALBUMIN 4.3 g/dl (3.4-5.0); BLOOD UREA NITROGEN 6.9 mg/dL (7-18); CALCIUM 8.7 mg/dL (8.5-10.1)
[2024-06-23 12:21] LABS: CREATININE 0.5 mg/dL (0.55-1.3)
[2024-06-23 12:24] LABS: TOT PROT 7.8 g/dl (6.4-8.2)
[2024-06-23 13:09] LABS: HIV INTERPRETATION NEGATIVE (NEGATIVE)
[2024-06-23] MEDS ORDERED: FAMOTIDINE 20 MG TABLET ONE (13:09)
[2024-06-23] MEDS ORDERED: MAG HYDROX/AL HYDROX/SIMETH 30 ML UNIT-DOSE CUP ONE (13:10)
[2024-06-23] MEDS: MAG HYDROX/AL HYDROX/SIMETH 30 ML UNIT-DOSE CUP PO ONE (13:52)
[2024-06-23] MEDS: FAMOTIDINE 20 MG TABLET PO ONE (13:52)
== END 2024-06-23 14:05 | disposition home or self-care (01) ==
LOC: JER 10:49
PROC: 3E033NZ Introduction of Analgesics, Hypnotics, Sedatives into Peripheral Vein, Percutaneous Approach (ICD-10-PCS; principal; 2024-06-23)
PROC: 3E033GC Introduction of Other Therapeutic Substance into Peripheral Vein, Percutaneous Approach (ICD-10-PCS; 2024-06-23)
DX: K29.00 Acute gastritis without bleeding (principal); R11.0 Nausea; R51.9 Headache, unspecified; R10.13 Epigastric pain; Z20.822 Contact with and (suspected) exposure to COVID-19
CPT/HCPCS: 0241U-QW; 36415; 80053; 81003; 83690; 84703; 85025; 86803; 87389; 99284-25; J0131